=== PATIENT | female | born 1970 | race Caucasian/White ===

== ENCOUNTER 2019-06-17 13:01 | Emergency (ER) | payer OTHER ==
[~2019-06-17] VITALS: Ht 152.4 cm; Wt 80.0 kg
[2019-06-17 13:10] VITALS: Ht 152.4 cm; Wt 80.0 kg
[2019-06-17] MEDS ORDERED: CORTEF10 MG PO (13:13)
[2019-06-17] MEDS ORDERED: KLONOPIN1 MG PO (13:14)
[2019-06-17] MEDS ORDERED: CELEXA10 MG PO (13:14)
[2019-06-17] MEDS ORDERED: EC-NAPROSYN500 MG PO (15:17)
[2019-06-17] MEDS ORDERED: CYCLOBENZAPRINE10 MG PO (15:17)
[2019-06-17 15:45] VITALS: BP 122/84
== END 2019-06-17 15:46 | disposition home or self-care (01) ==
LOC: D.ER 13:01
DX: S39.012A Strain of muscle, fascia and tendon of lower back, initial encounter (principal); M62.830 Muscle spasm of back; M54.32 Sciatica, left side; V89.2XXA Person injured in unspecified motor-vehicle accident, traffic, initial encounter; Y93.9 Activity, unspecified; Y92.9 Unspecified place or not applicable